=== PATIENT | female | born 1985 | race Caucasian/White ===

== ENCOUNTER 2018-05-04 17:46 | Emergency (ER) | payer MEDICAID ==
[~2018-05-04] VITALS: Ht 167.6 cm; Wt 87.0 kg
[2018-05-04 19:07] LABS: BASOPHILS # (AUTO) 0.1 X10'3 (0-0.2); BASOPHILS % (AUTO) 0.6 % (0-1); EOSINOPHILS # (AUTO) 0.2 X10'3 (0-0.9); HEMATOCRIT 47.6 % (35.0-45.0); HEMOGLOBIN 15.6 g/dl (12.0-16.0); LYMPHOCYTES # (AUTO) 2.9 X10'3 (1.1-4.8); LYMPHOCYTES % (AUTO) 28.1 % (21-51); MEAN CORPUSCULAR HEMOGLOBIN 29.5 PG (27.0-31.0); MEAN CORPUSCULAR HGB CONC 32.8 % (33.0-36.5); MEAN CORPUSCULAR VOLUME 90.2 FL (78-98); MEAN PLATELET VOLUME 9.2 FL (7.4-10.4); MONOCYTES # (AUTO) 0.7 X10'3 (0-0.9); MONOCYTES % (AUTO) 7.3 % (2-12); NEUTROPHILS # (AUTO) 6.3 X10'3 (1.8-7.7); PLATELET COUNT 270 X10'3 (140-440); RED BLOOD COUNT 5.28 X10'6 (4.20-5.60); RED CELL DISTRIBUTION WIDTH 13.1 % (11.5-14.5); WHITE BLOOD COUNT 10.2 X10'3 (4.5-11.0)
[2018-05-04 19:12] LABS: URINE HCG NEGATIVE (NEG)
[2018-05-04 19:23] LABS: ALANINE AMINOTRANSFERASE 16 U/L (12-78); ALBUMIN 3.8 G/DL (3.4-5.0); ALKALINE PHOSPHATASE 79 IU/L (46-116); ANION GAP 10 (8-16); ASPARTATE AMINO TRANSFERASE 8 U/L (10-37); BILIRUBIN,TOTAL 0.7 MG/DL (0.1-1.0); BLOOD UREA NITROGEN 9 MG/DL (7-18); BUN/CREATININE RATIO 12.2 (6.6-38.0); CALCIUM 9.1 MG/DL (8.5-10.1); CHLORIDE 102 MMOL/L (99-107); CREATININE 0.74 MG/DL (0.40-0.90); GLUCOSE 82 MG/DL (70-104); POTASSIUM 4.1 MMOL/L (3.5-5.1); SODIUM 138 MMOL/L (135-145); TOTAL CARBON DIOXIDE 26.4 MMOL/L (24-32); TOTAL PROTEIN 7.7 G/DL (6.4-8.2); eGFR > 90 ML/MIN
[2018-05-04 19:25] LABS: CLARITY,URINE SLIGHTLY CLOUDY (Clear); COLOR,URINE YELLOW (Yellow); GLUCOSE, URINE NEGATIVE (Neg); KETONES,URINE NEGATIVE (Neg); LEUKOCYTE ESTERASE ,URINE SMALL (Neg); NITRITES, URINE NEGATIVE (Neg); OCCULT BLOOD,URINE SMALL (Neg); PROTEIN,URINE NEGATIVE (Neg); UROBILINOGEN,URINE 0.2 E.U/dL (0.2-1.0)
[2018-05-04 19:30] LABS: INR 1.1 INR
[2018-05-04 19:32] LABS: UA COLLECTION TYPE CLN CATCH MIDSTREAM
[2018-05-04 19:50] LABS: BACTERIA,URINE FEW /HPF (Neg); MUCUS STRANDS FEW /LPF (Neg); RBC,URINE 0-2 /HPF (0-2); SQUAMOUS EPITHELIAL CELL,UR FEW /LPF (FEW); TRICHOMONAS,URINE FEW /HPF (NEGATIVE)
[2018-05-04 20:26] VITALS: BP 128/71
[2018-05-04] MEDS ORDERED: metroNIDAZOLE 500mg tablet PO ONE (20:40)
[2018-05-04] MEDS ORDERED: CefTRIAXone 1000mg IM Kit (w/lidocaine diluent) IM ONE (20:40)
[2018-05-04] MEDS ORDERED: CIPR-230 PO (20:43)
[2018-05-04] MEDS ORDERED: HYDROcodone/acetaminophen 5mg/325mg tablet PO ONE (21:05)
== END 2018-05-04 21:08 | disposition home or self-care (01) ==
LOC: ER 17:47
DX: N10 Acute pyelonephritis (principal); Z88.1 Allergy status to other antibiotic agents; Z88.5 Allergy status to narcotic agent; Z79.899 Other long term (current) drug therapy
CPT/HCPCS: 36415; 80053; 81001; 81025; 85025; 85610; 87088; 96372; 99283; J0696; J3490

== ENCOUNTER 2018-05-30 11:08 | Emergency (ER) | payer MEDICAID ==
[~2018-05-30] VITALS: Ht 167.6 cm; Wt 87.4 kg
[~2018-05-30 11:08] MED LIST: CIPR-259 PO
[2018-05-30 12:05] LABS: BASOPHILS # (AUTO) 0.1 X10'3 (0-0.2); BASOPHILS % (AUTO) 0.7 % (0-1); EOSINOPHILS # (AUTO) 0.3 X10'3 (0-0.9); EOSINOPHILS % (AUTO) 3.5 % (0-6); HEMATOCRIT 45.3 % (35.0-45.0); HEMOGLOBIN 15.2 g/dl (12.0-16.0); LYMPHOCYTES # (AUTO) 1.9 X10'3 (1.1-4.8); MEAN CORPUSCULAR HEMOGLOBIN 30.3 PG (27.0-31.0); MEAN CORPUSCULAR HGB CONC 33.6 g/dL (33.0-36.5); MEAN CORPUSCULAR VOLUME 90.1 FL (78-98); MEAN PLATELET VOLUME 8.9 FL (7.4-10.4); MONOCYTES # (AUTO) 0.6 X10'3 (0-0.9); MONOCYTES % (AUTO) 7.6 % (2-12); NEUTROPHILS # (AUTO) 5.2 X10'3 (1.8-7.7); NEUTROPHILS % (AUTO) 64.2 % (42-75); PLATELET COUNT 232 X10'3 (140-440); RED BLOOD COUNT 5.03 X10'6 (4.20-5.60); RED CELL DISTRIBUTION WIDTH 13.1 % (11.5-14.5)
--- NOTE | 2018-05-30 12:15 | NUR ---
Angie morales in [facility] - 05/30/18 at 1216 by CM ASSUMED CARE OF PT FROM ILIA RN
[2018-05-30 12:21] LABS: ALANINE AMINOTRANSFERASE 16 U/L (12-78); ALBUMIN 3.7 G/DL (3.4-5.0); ALBUMIN/GLOBULIN RATIO 1.1 (1.1-1.5); ALKALINE PHOSPHATASE 73 IU/L (46-116); ANION GAP 8 (8-16); ASPARTATE AMINO TRANSFERASE 9 U/L (10-37); BILIRUBIN,TOTAL 0.5 MG/DL (0.1-1.0); BLOOD UREA NITROGEN 8 MG/DL (7-18); BUN/CREATININE RATIO 10.7 (6.6-38.0); CALCIUM 8.5 MG/DL (8.5-10.1); CHLORIDE 104 MMOL/L (99-107); CREATININE 0.75 MG/DL (0.40-0.90); ETHANOL < 0.010 GM/DL (0.0-0.010); GLUCOSE 102 MG/DL (70-104); POTASSIUM 4.1 MMOL/L (3.5-5.1); SODIUM 138 MMOL/L (135-145); TOTAL CARBON DIOXIDE 25.7 MMOL/L (24-32); TOTAL PROTEIN 7.2 G/DL (6.4-8.2); eGFR 90 ML/MIN
[2018-05-30] MEDS ORDERED: NO HOME MEDS (12:22)
[2018-05-30 12:49] LABS: CLARITY,URINE CLEAR (Clear); COLOR,URINE YELLOW (Yellow); GLUCOSE, URINE NEGATIVE (Neg); KETONES,URINE NEGATIVE (Neg); LEUKOCYTE ESTERASE ,URINE NEGATIVE (Neg); NITRITES, URINE NEGATIVE (Neg); OCCULT BLOOD,URINE NEGATIVE (Neg); PROTEIN,URINE NEGATIVE (Neg); UA COLLECTION TYPE CLN CATCH MIDSTREAM; UROBILINOGEN,URINE 0.2 E.U/dL (0.2-1.0)
[2018-05-30 12:52] LABS: URINE HCG NEGATIVE (NEG)
[2018-05-30 13:13] LABS: URINE AMPHETAMINE SCREEN NEGATIVE (Neg); URINE BARBITUATE SCREEN NEGATIVE (Neg); URINE BENZODIAZEPINES SCREEN NEGATIVE (Neg); URINE CANNABINOID SCREEN POSITIVE (Neg); URINE COCAINE SCREEN NEGATIVE (Neg); URINE METHADONE SCREEN NEGATIVE (Neg); URINE OPIATE SCREEN NEGATIVE (Neg); URINE PHENCYCLIDINE SCREEN NEGATIVE (Neg)
--- NOTE | 2018-05-30 14:21 | NUR ---
tele psych called for consult
[2018-05-30] MEDS ORDERED: nicotine 14mg patch - 24hr TD ONE (15:15)
--- NOTE | 2018-05-30 16:22 | NUR ---
patient talking with telepsych
--- NOTE | 2018-05-30 17:01 | NUR ---
TELEPSYCH PHYSICIAN CALLED WITH RECOMMENDATION FOR INPATIENT COMMITMENT AND TO BE PLACED ON 5150 HOLD. MEDICATION RECOMENDATION TO FOLLOW WITH REPORT. PT'S PRIMARY RN NOTIFIED
--- NOTE | 2018-05-30 18:21 | NUR ---
PT GIVEN MEAL TRAY, PT STATES HAS CHRONIC HIP PAIN AND ASKING FOR TYLENOL, RECEIVED VERBAL ORDER FROM DR MCDONALD FOR TYLENOL 650MG ONCE NOW. PRIMARY NURSE GONZALO YUNG.
[2018-05-30] MEDS ORDERED: acetaminophen 325mg tablet PO ONE (18:25)
--- NOTE | 2018-05-30 18:55 | NUR ---
RCVD REPORT FROM GONZALO CONNOLLY, ASSUMED CARE OF PT. PT IS CALM COOPERATIVE, EATING SNACKS, BEVERAGE PROVIDED.
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
--- NOTE | 2018-05-30 20:41 | NUR ---
[facility] AND IS PLACING PT ON 5150 W/RECOMMENDATION FOR PSYCHE PLACEMENT DUE TO DTS.
[2018-05-30] MEDS ORDERED: hydrOXYzine 25 MG tablet PO PRN (20:45)
[2018-05-30] MEDS ORDERED: QUEtiapine 25mg tablet PO SCH (21:00)
--- NOTE | 2018-05-30 22:55 | NUR ---
PT LAYING ON HER LEFT SIDE RESTING W/EYES CLOSED RR EVEN AND UNLABORED
--- NOTE | 2018-05-31 00:33 | NUR ---
RECVD CALL FROM DOMI AT [facility], THEY WILL CALL TOMORROW AND LET US KNOW IF PT HAS BEEN ACCEPTED.
--- NOTE | 2018-05-31 01:29 | NUR ---
PT IS LAYING IN BED SLEEPING RR EVEN AND UNLABORED NO S/S DISTRESS.
--- NOTE | 2018-05-31 03:23 | NUR ---
PT LAYING ON HER RIGHT SIDE RR EVEN AND UNLABORED NO S/S DISTRESS
--- NOTE | 2018-05-31 04:11 | NUR ---
PT AWAKE SITTING ON SIDE OF BED EATING YOGURT
--- NOTE | 2018-05-31 04:27 | NUR ---
PT USED THE TOILET AND RETURNED TO BED. PT IS LAYING IN BED W/EYES CLOSED RESTING COMFORTABLY.
--- NOTE | 2018-05-31 05:33 | NUR ---
PT LAYING ON HER LEFT SLEEPING SIDE RR EVEN AND UNLABORED NO S/S DISTRESS
[2018-05-31 05:59] VITALS: BP 108/54
--- NOTE | 2018-05-31 06:43 | NUR ---
Patient sleeping supine. No restlessness/distress observed. Continue to monitor.
[2018-05-31] MEDS ORDERED: sertraline 25mg tablet PO SCH (08:00)
--- NOTE | 2018-05-31 08:05 | NUR ---
Patient sitting up and eating breakfast. No distress observed. Continue to monitor.
== END 2018-05-31 10:37 ==
LOC: ER 11:08
DX: R45.851 Suicidal ideations (principal); F41.9 Anxiety disorder, unspecified; F32.9 Major depressive disorder, single episode, unspecified; F17.200 Nicotine dependence, unspecified, uncomplicated; F12.90 Cannabis use, unspecified, uncomplicated; Z88.6 Allergy status to analgesic agent; Z88.1 Allergy status to other antibiotic agents; Z91.018 Allergy to other foods
CPT/HCPCS: 36415; 80053; 80305; 80320; 81003; 81025; 85025; 99285; Q0177

== ENCOUNTER 2018-06-20 21:29 | Emergency (ER) | payer MEDICAID ==
[~2018-06-20] VITALS: Ht 167.6 cm; Wt 86.8 kg
[~2018-06-20 21:29] MED LIST changes: -CIPR-259 PO; +NO HOME MEDS
--- NOTE | 2018-06-20 21:59 | NUR ---
CALL TO POISON CONTROL AT THIS TIME, SPOKE WITH AZUCENA, . MONITOR PATIENT X6 HRS, WATCH FOR SIGNS OF TACHYCARDIA, WIDENING QRS, SEIZURES, ALCOHOL, UDS, HCG, ACETAMINOPHEN, ASPIRIN, CMP, GIVE SODIUM BICARB FOR WIDENING QRS. Addendum: 06/20/18 [address] VARGAS AWARE OF POISON CONTROL RECOMMENDATIONS.
--- NOTE | 2018-06-20 22:30 | NUR ---
ASSUMED CARE PATIENT IN BED EYES CLOS3D RR EEN UN LABORED NO OBSERVABLE S/S OF ACUTE STRESS AT THIS TIME
[2018-06-20 22:37] LABS: BASOPHILS % (AUTO) 0.4 % (0-1); EOSINOPHILS # (AUTO) 0.3 X10'3 (0-0.9); HEMATOCRIT 44.6 % (35.0-45.0); LYMPHOCYTES # (AUTO) 2.1 X10'3 (1.1-4.8); LYMPHOCYTES % (AUTO) 21.6 % (21-51); MEAN CORPUSCULAR HEMOGLOBIN 29.9 PG (27.0-31.0); MEAN CORPUSCULAR HGB CONC 33.6 g/dL (33.0-36.5); MEAN CORPUSCULAR VOLUME 88.7 FL (78-98); MEAN PLATELET VOLUME 8.5 FL (7.4-10.4); MONOCYTES # (AUTO) 0.7 X10'3 (0-0.9); MONOCYTES % (AUTO) 6.9 % (2-12); NEUTROPHILS # (AUTO) 6.7 X10'3 (1.8-7.7); NEUTROPHILS % (AUTO) 68.1 % (42-75); PLATELET COUNT 241 X10'3 (140-440); RED BLOOD COUNT 5.02 X10'6 (4.20-5.60); RED CELL DISTRIBUTION WIDTH 13.6 % (11.5-14.5); WHITE BLOOD COUNT 9.8 X10'3 (4.5-11.0)
[2018-06-20 22:45] LABS: ALANINE AMINOTRANSFERASE 15 U/L (12-78); ALBUMIN 3.4 G/DL (3.4-5.0); ALBUMIN/GLOBULIN RATIO 1.1 (1.1-1.5); ALKALINE PHOSPHATASE 76 IU/L (46-116); ANION GAP 9 (8-16); ASPARTATE AMINO TRANSFERASE 12 U/L (10-37); BILIRUBIN,TOTAL 0.3 MG/DL (0.1-1.0); BLOOD UREA NITROGEN 7 MG/DL (7-18); BUN/CREATININE RATIO 12.3 (6.6-38.0); CALCIUM 8.3 MG/DL (8.5-10.1); CHLORIDE 106 MMOL/L (99-107); CREATININE 0.57 MG/DL (0.40-0.90); GLUCOSE 84 MG/DL (70-104); POTASSIUM 3.7 MMOL/L (3.5-5.1); SODIUM 142 MMOL/L (135-145); TOTAL PROTEIN 6.6 G/DL (6.4-8.2); eGFR > 90 ML/MIN
[2018-06-20 22:56] LABS: ACETAMINOPHEN < 2.0 UG/ML (10-30); ETHANOL 0.039 GM/DL (0.0-0.010)
--- NOTE | 2018-06-21 01:30 | NUR ---
PATIENT IN BED, SUPINE, COVERS ON, EYES CLOSED, RR EVEN UN LABORED NO OBSERVABLE S/S OF ACUTE STRESS AT THIS TIME
--- NOTE | 2018-06-21 02:06 | NUR ---
CALLED TO INITIATE TELE PSYCH. SPOKE WITH NEETU
--- NOTE | 2018-06-21 03:03 | NUR ---
PATIENT IN BED LYING ON RIGHT SIDE COVERS ON EYES CLOSED RR EVEN UN LABORED NO OBSERVABLE S/S OF ACUTE STRESS AT THIS TIME
--- NOTE | 2018-06-21 04:03 | NUR ---
SPOKE WITH TELE PSYCH VERBALIZED THEY WILL BE CALLING TELE IN PATIENTS ROOM SHORTLY
--- NOTE | 2018-06-21 05:20 | NUR ---
PATIENT IN BED, COVERS ON, EYES CLOSED, SUPINE POSITION, RR EVEN UN LABORED, NO OBSERVABLE S/S OF ACUTE STRESS AT THIS TIME
--- NOTE | 2018-06-21 06:30 | NUR ---
Patient resting comfortably on her right side. No needs at this time.
--- NOTE | 2018-06-21 07:27 | NUR ---
Patient resting with eyes closed, respirations are even and unlabored. No needs at this time.
--- NOTE | 2018-06-21 07:32 | NUR ---
Spoke with Dr. Leos regarding recommendations for zoloft 25 mg PO Daily, Dr. Leos stated to place verbal order for medication.
--- NOTE | 2018-06-21 07:45 | NUR ---
Patient up to bathroom to given urine sample. Assisted patient back to room onto [facility], asked if patient wanted a warm blanket she denied. When asked how patient felt, patients stated,"I feel out of it."
--- NOTE | 2018-06-21 07:48 | NUR ---
Spoke with Poison Control. They feel at this time that the likelihood of the patient worsening is extremely small and feel that she can be cleared for psychiatric evaluation at this time.
[2018-06-21] MEDS ORDERED: HYDR-3927 PO (07:56)
[2018-06-21] MEDS ORDERED: SERT50TA10 PO (07:56)
[2018-06-21] MEDS ORDERED: sertraline 25mg tablet PO ONE (08:00)
[2018-06-21] MEDS ORDERED: sertraline 50mg tablet PO SCH (08:00)
[2018-06-21] MEDS ORDERED: sertraline 50mg tablet PO ONE (08:00)
[2018-06-21 08:19] LABS: URINE HCG NEGATIVE (NEG)
[2018-06-21 08:25] LABS: CLARITY,URINE SLIGHTLY CLOUDY (Clear); COLOR,URINE YELLOW (Yellow); GLUCOSE, URINE NEGATIVE (Neg); KETONES,URINE NEGATIVE (Neg); LEUKOCYTE ESTERASE ,URINE NEGATIVE (Neg); NITRITES, URINE NEGATIVE (Neg); OCCULT BLOOD,URINE TRACE-INTACT (Neg); PH,URINE 5.5 (4.8-8.0); PROTEIN,URINE NEGATIVE (Neg); UROBILINOGEN,URINE 0.2 E.U/dL (0.2-1.0)
[2018-06-21 08:27] LABS: UA COLLECTION TYPE CLN CATCH MIDSTREAM
[2018-06-21 08:33] LABS: URINE AMPHETAMINE SCREEN NEGATIVE (Neg); URINE BARBITUATE SCREEN NEGATIVE (Neg); URINE BENZODIAZEPINES SCREEN NEGATIVE (Neg); URINE CANNABINOID SCREEN POSITIVE (Neg); URINE COCAINE SCREEN NEGATIVE (Neg); URINE METHADONE SCREEN NEGATIVE (Neg); URINE OPIATE SCREEN NEGATIVE (Neg); URINE PHENCYCLIDINE SCREEN NEGATIVE (Neg)
[2018-06-21 08:40] LABS: MUCUS STRANDS MODERATE /LPF (Neg); SQUAMOUS EPITHELIAL CELL,UR MODERATE /LPF (FEW)
[2018-06-21 08:41] LABS: BACTERIA,URINE FEW /HPF (Neg); RBC,URINE 0-2 /HPF (0-2); WBC,URINE 0-4 /HPF (0-4)
[2018-06-21] MEDS: sertraline 25mg tablet PO SCH (09:29)
--- NOTE | 2018-06-21 10:56 | NUR ---
PT RESTING QUIETLY , TOOK HER MORNING MED APPROPRIATLY AND HAS BEEN COOPERATIVE , WILL CONTINUE TO MONITOR
--- NOTE | 2018-06-21 12:30 | NUR ---
pt resting in bed will continue to monitor
--- NOTE | 2018-06-21 14:30 | NUR ---
pt talking on the phone to family
--- NOTE | 2018-06-21 16:30 | NUR ---
pt resting quietly
--- NOTE | 2018-06-21 18:05 | NUR ---
Report given to CATHLEEN Dias
--- NOTE | 2018-06-21 18:27 | NUR ---
Assumed care. Pt found eating dinner no compaints that this time will cont to monitor
--- NOTE | 2018-06-21 20:47 | NUR ---
Pt sleeping at this time. Will cont to monitor
--- NOTE | 2018-06-22 00:02 | NUR ---
Pt sleeping no distress noted. Will cont to monitor
--- NOTE | 2018-06-22 02:19 | NUR ---
Pt sleeping no apparent distress noted. Will cont to monitor.
[2018-06-22] MEDS: sertraline 25mg tablet PO SCH (08:55)
--- NOTE | 2018-06-22 09:12 | NUR ---
PT STATED SHES NOT SUICIDAL OR HOMICIDAL. STATED JUST SLEEPING A LOT LATELY.
--- NOTE | 2018-06-22 11:28 | NUR ---
PT WALKING IN FRONT OF NURSING STATION. EXPLAINED BOUNDARIES. VERBALIZED UNDERSTANDING STATED SHE WILL STAY WITHIN THE LIMITS. WILL CONTINUE TO MONITOR.
[2018-06-22] MEDS ORDERED: nicotine 14mg patch - 24hr TD ONE (15:55)
[2018-06-22] MEDS ORDERED: ibuprofen tablet 400 MG TABLET PO ONE (15:55)
--- NOTE | 2018-06-22 16:11 | NUR ---
ATTEMPTED TO GIVE IBUPROFEN TO PT. PT STATED IT CAUSES NAUSEA AND DOESNT WANT TO TAKE IT.
[2018-06-22] MEDS ORDERED: ziprasidone 20mg capsule PO ONE ×2 (17:05→17:25)
[2018-06-22] MEDS ORDERED: ziprasidone 20mg capsule PO SCH ×2 (17:05→17:25)
[2018-06-22] MEDS ORDERED: LORazepam 1 MG tablet PO ONE (17:05)
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
[2018-06-22] MEDS ORDERED: diphenhydrAMINE 25mg capsule PO ONE (18:35)
--- NOTE | 2018-06-22 18:46 | NUR ---
Assumed care pt up pacing the floor speaking rapidly. Pt sat down to eat dinner and then informed me she at onions that she is allergic to. She was hyperventalating speaking in full sentences. Lung sound were clear and no stritor noted. notified and katieyl ordered and given to pt. Will cont to closely monitor the pt.
--- NOTE | 2018-06-22 21:02 | NUR ---
Pt sleeping comfortably, will cont to monitor
--- NOTE | 2018-06-23 01:15 | NUR ---
Pt sleeping. will cont to monitor
[2018-06-23] MEDS: acetaminophen 325mg tablet PO PRN ×2 (02:47→08:17)
--- NOTE | 2018-06-23 03:06 | NUR ---
Pt complains of hip pain. Meds given as ordered. will cont to galen
[2018-06-23] MEDS: sertraline 25mg tablet PO SCH (08:14)
[2018-06-23 11:13] VITALS: BP 113/62
[2018-06-24] MEDS ORDERED: CEPH-572 PO (20:38)
[2018-06-24] MEDS ORDERED: SULF1TAB49 PO (20:38)
== END 2018-06-23 14:06 | disposition home or self-care (01) ==
LOC: ER 21:30
DX: T43.592A Poisoning by other antipsychotics and neuroleptics, intentional self-harm, initial encounter (principal); T43.222A Poisoning by selective serotonin reuptake inhibitors, intentional self-harm, initial encounter; F32.9 Major depressive disorder, single episode, unspecified; R45.851 Suicidal ideations; F41.9 Anxiety disorder, unspecified; F12.90 Cannabis use, unspecified, uncomplicated; F17.200 Nicotine dependence, unspecified, uncomplicated; Z91.018 Allergy to other foods; Z88.1 Allergy status to other antibiotic agents; Z88.5 Allergy status to narcotic agent; Z88.6 Allergy status to analgesic agent; Z79.899 Other long term (current) drug therapy; Y92.89 Other specified places as the place of occurrence of the external cause
CPT/HCPCS: 36415; 80053; 80305; 80320; 80329; 81001; 81025; 84443; 85025; 99285

== ENCOUNTER 2018-06-24 20:05 | Emergency (ER) | payer MEDICAID ==
[~2018-06-24] VITALS: Ht 167.6 cm; Wt 87.1 kg
[~2018-06-24 20:05] MED LIST changes: +HYDR-3927 PO; -NO HOME MEDS; +SERT50TA10 PO
[2018-06-24 20:22] VITALS: BP 131/90
[2018-06-24] MEDS ORDERED: SULF1TAB49 PO (20:38)
[2018-06-24] MEDS ORDERED: CEPH-572 PO (20:38)
== END 2018-06-24 20:46 | disposition home or self-care (01) ==
LOC: ER 20:05
DX: L02.215 Cutaneous abscess of perineum (principal); F12.90 Cannabis use, unspecified, uncomplicated; Z88.6 Allergy status to analgesic agent; Z88.1 Allergy status to other antibiotic agents; Z91.018 Allergy to other foods; Z91.048 Other nonmedicinal substance allergy status
CPT/HCPCS: 99283

== ENCOUNTER 2018-09-08 11:11 | Emergency (ER) | payer MEDICAID ==
[~2018-09-08] VITALS: Ht 167.6 cm; Wt 84.0 kg
[2018-09-08 12:01] LABS: URINE HCG NEGATIVE (NEG)
[2018-09-08 12:02] LABS: BASOPHILS # (AUTO) 0.1 X10'3 (0-0.2); EOSINOPHILS # (AUTO) 0.4 X10'3 (0-0.9); EOSINOPHILS % (AUTO) 4.3 % (0-6); HEMATOCRIT 44.2 % (35.0-45.0); HEMOGLOBIN 14.8 g/dl (12.0-16.0); LYMPHOCYTES # (AUTO) 2.4 X10'3 (1.1-4.8); LYMPHOCYTES % (AUTO) 28.9 % (21-51); MEAN CORPUSCULAR HEMOGLOBIN 30.1 PG (27.0-31.0); MEAN CORPUSCULAR HGB CONC 33.4 g/dL (33.0-36.5); MEAN CORPUSCULAR VOLUME 90.3 FL (78-98); MEAN PLATELET VOLUME 9.2 FL (7.4-10.4); MONOCYTES # (AUTO) 0.7 X10'3 (0-0.9); MONOCYTES % (AUTO) 8.6 % (2-12); NEUTROPHILS # (AUTO) 4.7 X10'3 (1.8-7.7); NEUTROPHILS % (AUTO) 57.2 % (42-75); PLATELET COUNT 233 X10'3 (140-440); RED CELL DISTRIBUTION WIDTH 13.6 % (11.5-14.5); WHITE BLOOD COUNT 8.2 X10'3 (4.5-11.0)
[2018-09-08 12:10] LABS: CLARITY,URINE CLEAR (Clear); COLOR,URINE YELLOW (Yellow); GLUCOSE, URINE NEGATIVE (Neg); KETONES,URINE NEGATIVE (Neg); LEUKOCYTE ESTERASE ,URINE TRACE (Neg); NITRITES, URINE NEGATIVE (Neg); OCCULT BLOOD,URINE TRACE-INTACT (Neg); PROTEIN,URINE NEGATIVE (Neg); UROBILINOGEN,URINE 0.2 E.U/dL (0.2-1.0)
[2018-09-08 12:18] LABS: UA COLLECTION TYPE CLN CATCH MIDSTREAM
[2018-09-08 12:19] LABS: ALANINE AMINOTRANSFERASE 16 U/L (12-78); ALBUMIN 3.8 G/DL (3.4-5.0); ALBUMIN/GLOBULIN RATIO 1.1 (1.1-1.5); ALKALINE PHOSPHATASE 76 IU/L (46-116); ANION GAP 5 (8-16); ASPARTATE AMINO TRANSFERASE 10 U/L (10-37); BILIRUBIN,TOTAL 0.5 MG/DL (0.1-1.0); BLOOD UREA NITROGEN 16 MG/DL (7-18); BUN/CREATININE RATIO 23.2 (6.6-38.0); CHLORIDE 105 MMOL/L (99-107); CREATININE 0.69 MG/DL (0.40-0.90); GLUCOSE 95 MG/DL (70-104); LIPASE 99 U/L (73-393); POTASSIUM 4.4 MMOL/L (3.5-5.1); SODIUM 136 MMOL/L (135-145); TOTAL CARBON DIOXIDE 26.5 MMOL/L (24-32); TOTAL PROTEIN 7.3 G/DL (6.4-8.2); eGFR > 90 ML/MIN
[2018-09-08 12:19] LABS: BACTERIA,URINE NONE SEEN /HPF (Neg); MUCUS STRANDS NONE SEEN /LPF (Neg); RBC,URINE NONE SEEN /HPF (0-2); SQUAMOUS EPITHELIAL CELL,UR FEW /LPF (FEW); WBC,URINE 0-4 /HPF (0-4)
[2018-09-08] MEDS ORDERED: ketorolac tromethamine 15mg/ml inj. IV ONE (12:50)
[2018-09-08 13:21] VITALS: BP 112/70
== END 2018-09-08 13:37 | disposition home or self-care (01) ==
LOC: ER 11:11
DX: R10.30 Lower abdominal pain, unspecified (principal); F12.90 Cannabis use, unspecified, uncomplicated; Z88.1 Allergy status to other antibiotic agents; Z91.018 Allergy to other foods; Z88.6 Allergy status to analgesic agent; Z88.5 Allergy status to narcotic agent; Z79.899 Other long term (current) drug therapy
CPT/HCPCS: 36415; 80053; 81001; 81025; 83690; 85025; 87088; 96374; 99283; J1885